=== PATIENT | male | born 1990 | race Caucasian/White ===

== ENCOUNTER 2021-11-27 21:29 | Observation (INO) | payer MEDICAID, OTHER ==
[2021-11-27] MEDS ORDERED: Sodium Chloride 0.9% 1000 ML 1,000 ML IV STA (21:58)
[2021-11-27] MEDS ORDERED: VANCOMYCIN 1 GRAM/200 ML BAG 1 GM/200 ML PIGGYBACK IV ONE ×2 (22:00→22:18)
[2021-11-27] MEDS ORDERED: PIPERACILLIN/TAZOBACTAM 3.375 GM in Sodium Chloride 100ML MINI-BAG PLUS 100 ML IV ONE (22:00)
[2021-11-27] MEDS ORDERED: PIPERACILLIN/TAZOBACTAM IV ONE (22:03)
[2021-11-27] MEDS ORDERED: CLINDAMYCIN-D5W 900 MG/50 ML*** 900 MG/50 ML BAG IV STA (22:03)
[2021-11-27] MEDS ORDERED: Sodium Chloride 0.9% 100 ML ONE (22:05)
[2021-11-27] MEDS ORDERED: Sodium Chloride 100ML MINI-BAG PLUS 100 ML IV ONE (22:05)
[2021-11-27] MEDS ORDERED: Zofran 4 MG/2 ML VIAL IV ONE (22:15)
[2021-11-27] MEDS ORDERED: MORPHINE SULFATE 4 MG INJ IV ONE (22:15)
[2021-11-27] MEDS ORDERED: MORPHINE SULFATE 4 MG INJ ONE (22:17)
[2021-11-27] MEDS ORDERED: Zofran 4 MG/2 ML VIAL ONE (22:17)
--- NOTE | 2021-11-27 22:17 | ERPHSYRPT ---
- History of Present Illness Time Seen by Provider: 11/27/21 21:33 Source: patient Exam Limitations: no limitations Patient Subjective Stated Complaint: foot pain and swelling and redness since saturday night but getting much worse Triage Nursing Assessment: pt noticed a tiny red spot on top of his rt foot Saturday and foot became very tender on Saturday. Today, pt's rt foot is swollen 2+ pitting edema, red, and warm to touch. Pt's leg is tight up to mid calf. Pt worked today. Physician History: Patient is a 31-year-old male presents to emergency department for evaluation of right foot swelling. Swelling started off as a small red spot at the dorsum of his right foot. Over the course of 24 hours the redness spread to encompass most of his foot. The foot and ankle is very swollen. Patient unable to put his regular shoes on. Patien states it is very painful to ambulate. No trauma. Patient is febrile in our ED. Patient took a 400 mg ibuprofen at approximately 7 AM. Timing/Duration: day(s) (2 days ago) Severity: moderate Modifying Factors: Improves With: nothing Associated Symptoms: denies symptoms Allergies/Adverse Reactions: No Known Drug Allergies Allergy (Unverified 11/27/21 21:42) Home Medications: No Reportable Medications [No Reported Medications] 11/27/21 [History] Hx Tetanus, Diphtheria Vaccination/Date Given: Yes Immunizations Up to Date: Yes Travel Risk - International Travel Have you traveled outside of the country in past 3 weeks: No - Coronavirus Screening Are you exhibiting any of the following symptoms?: No - Vaccine Status Have you recieved a Covid-19 vaccination: No - Review of Systems Constitutional: No Symptoms, No Fever, No Chills Eyes: No Symptoms Ears, Nose, & Throat: No Symptoms Respiratory: No Symptoms, No Cough, No Dyspnea Cardiac: No Symptoms, No Chest Pain, No Edema, No Syncope Abdominal/Gastrointestinal: No Symptoms, No Abdominal Pain, No Nausea, No Vomiting, No Diarrhea Genitourinary Symptoms: No Symptoms, No Dysuria Musculoskeletal: No Symptoms, No Back Pain, No Neck Pain Skin: No Symptoms, No Rash Neurological: No Symptoms, No Dizziness, No Focal Weakness, No Sensory Changes Psychological: No Symptoms Endocrine: No Symptoms Hematologic/Lymphatic: No Symptoms Immunological/Allergic: No Symptoms All Other Systems: Reviewed and Negative - Past Medical History Pertinent Past Medical History: Yes Musculoskeletal History: Fractures Psycho-Social History: Attention Deficit Disorder - Past Surgical History Past Surgical History: Yes Musculoskeletal: Orthopedic Surgery - Social History Smoking Status: Current every day smoker How long have you smoked: 14 yrs Exposure to second hand smoke: Yes Drug Use: none Patient Lives Alone: No - Nursing Vital Signs Nursing Vital Signs: Initial Vital Signs Temperature 100.5 F 11/27/21 21:29 Pulse Rate 113 H 11/27/21 21:29 Respiratory Rate 16 11/27/21 21:29 Blood Pressure 153/89 11/27/21 21:29 O2 Sat by Pulse Oximetry 96 11/27/21 21:29 Pain Scale Pain Intensity 8 - Physical Exam General Appearance: no apparent distress, alert Eye Exam: PERRL/EOMI, eyes nml inspection Ears, Nose, Throat Exam: normal ENT inspection, TMs normal, pharynx normal, moist mucous membranes Neck Exam: normal inspection, non-tender, supple, full range of motion Respiratory Exam: normal breath sounds, lungs clear, airway intact, No respiratory distress Cardiovascular Exam: regular rate/rhythm, normal heart sounds, normal peripheral pulses Gastrointestinal/Abdomen Exam: soft, normal bowel sounds, No tenderness, No mass Back Exam: normal inspection, normal range of motion, No CVA tenderness, No vertebral tenderness Extremity Exam: normal inspection, normal range of motion, pelvis stable, pedal edema, swelling (Cellulitis tracking approximately just proximal to the medial and lateral malleolus. No lymphangitis), other (Right foot is swollen. There is cellulitis throughout the right foot mostly on the dorsum lateral and posterior aspects. No involvement of the medial aspect of the right foot. The infection is tracking proximately just proximal to the right ankle. No lymphangitis. There is significant swelling) Neurologic Exam: alert, oriented x 3, cooperative, normal mood/affect, nml cerebellar function, nml station & gait, sensation nml, No motor deficits Skin Exam: normal color, warm, dry, No rash Lymphatic Exam: No adenopathy SpO2 Interpretation: normal SpO2: 97 O2 Delivery: Room Air - Course Nursing assessment & vital signs reviewed: Yes - CT Exams Lower Extremity CT Interpretation: Tele-radiologist Report (No evidence of fracture. Ankle and foot edema.) Ordered Tests: Active Orders 24 hr Category Date Time Status Department [employer] STAT Care 11/27/21 21:59 Active IV Insertion STAT Care 11/27/21 21:58 Active Pulse Oximetry (ED) STAT Care 11/27/21 21:58 Active LOWER EXTREMITY WO CONTRAST [CT] Stat Exams 11/27/21 22:09 Taken BLOOD CULTURE Stat Lab 11/27/21 22:15 Received CBC W DIFF Stat Lab 11/27/21 22:10 Completed CMP Stat Lab 11/27/21 22:00 Completed Lactic Acid Stat Lab 11/27/21 21:58 Completed PROCALCITONIN Stat Lab 11/27/21 22:00 Completed Transfer Order Routine Transfer 11/28/21 Ordered Medication Summary Generic Name Dose Route Start Last Admin Trade Name Freq PRN Reason Stop Dose Admin Potassium Chloride 20 meq in 100 mls @ 50 mls/hr 11/27/21 22:45 11/27/21 23:24 Potassium Chloride 20 Meq In Water 100ml IV 11/28/21 02:44 50 mls/hr Q2H MARCIE Administration Discontinued Medications Generic Name Dose Route Start Last Admin Trade Name Freq PRN Reason Stop Dose Admin Sodium Chloride 1,000 mls @ 999 mls/hr 11/27/21 21:58 11/27/21 22:06 Sodium Chloride 0.9% 1000 Ml IV 11/27/21 22:58 999 mls/hr .Q1H1M STA Administration Piperacillin Sod/Tazobactam 100 mls @ 200 mls/hr 11/27/21 22:00 11/27/21 22:07 Sod 3.375 gm/ Sodium Chloride IV 11/27/21 22:29 200 mls/hr STAT ONE Administration Vancomycin HCl 1 gm in 200 mls @ 125 mls/hr 11/27/21 22:00 11/27/21 22:19 Vancomycin 1 Gram/200 Ml Bag IV 11/27/21 23:35 125 ml/hr STAT ONE 125 mls/hr Administration Clindamycin HCl/Dextrose 900 mg in 50 mls @ 100 mls/hr 11/27/21 22:03 11/17 06/10 22:48 Clindamycin-D5w 900 Mg/50 Ml IV 11/27/21 22:32 100 mls/hr STAT STA 100 mls/hr Administration Sodium Chloride Confirm 11/27/21 22:05 Sodium Chloride 100ml Mini-Bag Plus Administered 11/27/21 22:06 Dose 100 mls @ ud IV .STK-MED ONE Sodium Chloride Confirm 11/27/21 22:05 Sodium Chloride 0.9% Administered 11/27/21 22:06 Dose 100 mls @ ud .ROUTE .STK-MED ONE Vancomycin HCl Confirm 11/27/21 22:18 Vancomycin 1 Gram/200 Ml Bag Administered 11/27/21 22:19 Dose 1 gm in 200 mls @ ud IV .STK-MED ONE Clindamycin HCl/Dextrose Confirm 11/27/21 22:47 Clindamycin-D5w 900 Mg/50 Ml Administered 11/27/21 22:48 Dose 900 mg in 50 mls @ ud IV .STK-MED ONE Morphine Sulfate 4 mg 11/27/21 22:15 11/27/21 22:20 Morphine Sulfate 4 Mg/Ml Injection IV 11/27/21 22:16 4 mg STAT ONE Administration Morphine Sulfate Confirm 11/27/21 22:17 Morphine Sulfate 4 Mg/Ml Injection Administered 11/27/21 22:18 Dose 4 mg .ROUTE .STK-MED ONE Ondansetron HCl 4 mg 11/27/21 22:15 11/27/21 22:20 Ondansetron Hcl 4 Mg/2 Ml Vial IV 11/27/21 22:16 4 mg STAT ONE Administration Ondansetron HCl Confirm 11/27/21 22:17 Ondansetron Hcl 4 Mg/2 Ml Vial Administered 11/27/21 22:18 Dose 4 mg .ROUTE .STK-MED ONE Piperacillin Sod/Tazobactam Sod Confirm 11/27/21 22:03 Piperacillin/Tazobactam Sodium 3.375 Gm Vial Administered 11/27/21 22:04 Dose 3.375 gm IV .STK-MED ONE Lab/Rad Data: Laboratory Result Diagrams 11/27/21 22:10 11/27/21 22:00 Laboratory Results 11/27/21 11/27/21 11/27/21 Range/Units 22:10 22:00 22:00 WBC 12.5 H (4.0-10.5) x10^3/uL RBC 4.31 (4.1-5.6) x10^6/uL Hgb 13.1 (12.5-18.0) g/dL Hct 38.7 L (42-50) % MCV 89.8 (78-100) fL MCH 30.4 (26-32) pg MCHC 33.9 (32-36) g/dL RDW 12.1 (11.5-14.0) % Plt Count 264 (150-450) x10^3/uL MPV 10.6 (7.5-11.0) fL Gran % 62.9 (36.0-66.0) % Immature Gran % (Auto) 0.2 (0.00-0.4) % Nucleat RBC Rel Count 0.0 (0.00-0.1) % Eos # (Auto) 0.22 (0-0.5) x10^3/uL Immature Gran # (Auto) 0.03 (0.00-0.03) x10^3u/L Absolute Lymphs (auto) 2.77 (1.0-4.6) x10^3/uL Absolute Monos (auto) 1.56 H (0.0-1.3) x10^3/uL Absolute Nucleated RBC 0.00 (0.00-0.01) x10^3u/L Lymphocytes % 22.1 L (24.0-44.0) % Monocytes % 12.5 H (0.0-12.0) % Eosinophils % 1.8 (0.00-5.0) % Basophils % 0.5 (0.0-0.4) % Absolute Granulocytes 7.88 H (1.4-6.9) x10^3/uL Basophils # 0.06 (0-0.4) x10^3/uL Sodium 138 (137-145) mmol/L Potassium 3.0 L* (3.5-5.1) mmol/L Chloride 101 (98-107) mmol/L Carbon Dioxide 27 (22-30) mmol/L Anion Gap 13.4 (5-15) MEQ/L BUN 10 (9-20) mg/dL Creatinine 0.75 (0.66-1.25) mg/dL Estimated GFR > 60.0 ML/MIN Glucose 107 H (74-106) mg/dL Lactic Acid (0.4-2.0) Calcium 8.9 (8.4-10.2) mg/dL Total Bilirubin 1.70 H (0.2-1.3) mg/dL AST 29 (17-59) U/L ALT 22 (0-50) U/L Alkaline Phosphatase 96 (38-126) U/L Serum Total Protein 7.6 (6.3-8.2) g/dL Albumin 4.1 (3.5-5.0) g/dL Procalcitonin 0.068 (0.030-0.080) ng/mL Influenza Type A Ag (NEGATIVE) Influenza Type B Ag (NEGATIVE) RSV (PCR) (Negative) SARS-CoV-2 (PCR) (NEGATIVE) Slides for Path Review YES 11/27/21 11/27/21 Range/Units 21:58 00:05 WBC (4.0-10.5) x10^3/uL RBC (4.1-5.6) x10^6/uL Hgb (12.5-18.0) g/dL Hct (42-50) % MCV (78-100) fL MCH (26-32) pg MCHC (32-36) g/dL RDW (11.5-14.0) % Plt Count (150-450) x10^3/uL MPV (7.5-11.0) fL Gran % (36.0-66.0) % Immature Gran % (Auto) (0.00-0.4) % Nucleat RBC Rel Count (0.00-0.1) % Eos # (Auto) (0-0.5) x10^3/uL Immature Gran # (Auto) (0.00-0.03) x10^3u/L Absolute Lymphs (auto) (1.0-4.6) x10^3/uL Absolute Monos (auto) (0.0-1.3) x10^3/uL Absolute Nucleated RBC (0.00-0.01) x10^3u/L Lymphocytes % (24.0-44.0) % Monocytes % (0.0-12.0) % Eosinophils % (0.00-5.0) % Basophils % (0.0-0.4) % Absolute Granulocytes (1.4-6.9) x10^3/uL Basophils # (0-0.4) x10^3/uL Sodium (137-145) mmol/L Potassium (3.5-5.1) mmol/L Chloride (98-107) mmol/L Carbon Dioxide (22-30) mmol/L Anion Gap (5-15) MEQ/L BUN (9-20) mg/dL Creatinine (0.66-1.25) mg/dL Estimated GFR ML/MIN Glucose (74-106) mg/dL Lactic Acid 0.8 (0.4-2.0) Calcium (8.4-10.2) mg/dL Total Bilirubin (0.2-1.3) mg/dL AST (17-59) U/L ALT (0-50) U/L Alkaline Phosphatase (38-126) U/L Serum Total Protein (6.3-8.2) g/dL Albumin (3.5-5.0) g/dL Procalcitonin (0.030-0.080) ng/mL Influenza Type A Ag NEGATIVE (NEGATIVE) Influenza Type B Ag NEGATIVE (NEGATIVE) RSV (PCR) NEGATIVE (Negative) SARS-CoV-2 (PCR) NEGATIVE (NEGATIVE) Slides for Path Review - Progress Progress: improved Progress Note: Case discussed with Dr. Singh who accepts admission to observation. Plan of care discussed with patient. He agrees to admission at [facility] for further evaluation and treatment of his right foot cellulitis. Portions of this note were created with voice recognition technology. There may be grammatical, spelling, punctuation or sound alike errors 11/28/21 01:26 Counseled pt/family regarding: lab results, diagnosis, rad results - Departure Departure Disposition: Observation Clinical Impression: Cellulitis of foot without toes, right, Leukocytosis, Fever, Hypokalemia Condition: Stable Critical Care Time: No
[2021-11-27 22:21] LABS: Absolute Neutrophil Ct (ANC) 7.88 x10^3/uL (1.4-6.9); Basophil (Absolute #) 0.06 x10^3/uL (0-0.4); Eosinophil % 1.8 % (0.00-5.0); Eosinophil (Absolute #) 0.22 x10^3/uL (0-0.5); Hematocrit 38.7 % (42-50); Hemoglobin 13.1 g/dL (12.5-18.0); Lymphocyte (Absolute #) 2.77 x10^3/uL (1.0-4.6); Lymphocytes % 22.1 % (24.0-44.0); Mean Cell Volume 89.8 fL (78-100); Mean Corpuscular Hemoglobin 30.4 pg (26-32); Mean Corpuscular Hgb Concent. 33.9 g/dL (32-36); Mean Platelet Volume 10.6 fL (7.5-11.0); Monocyte (Absolute #) 1.56 x10^3/uL (0.0-1.3); Monocytes % 12.5 % (0.0-12.0); Neutrophil % 62.9 % (36.0-66.0); Platelet Count 264 x10^3/uL (150-450); Red Blood Count 4.31 x10^6/uL (4.1-5.6); Red Cell Distribution Width 12.1 % (11.5-14.0); White Blood Count 12.5 x10^3/uL (4.0-10.5)
[2021-11-27 22:37] LABS: ALBUMIN 4.1 g/dL (3.5-5.0); ALKALINE PHOSPHATASE 96 U/L (38-126); ANION GAP 13.4 MEQ/L (5-15); BLOOD UREA NITROGEN 10 mg/dL (9-20); CHLORIDE 101 mmol/L (98-107); Calcium 8.9 mg/dL (8.4-10.2); Carbon Dioxide 27 mmol/L (22-30); Creatinine 1 0.75 mg/dL (0.66-1.25); EST GLOMERULAR FILTRATION RATE > 60.0 ML/MIN; Glucose 107 mg/dL (74-106); SGOT/AST 29 U/L (17-59); SGPT/ALT 22 U/L (0-50); SODIUM 138 mmol/L (137-145); Total Protein 7.6 g/dL (6.3-8.2)
[2021-11-27] MEDS ORDERED: CLINDAMYCIN-D5W 900 MG/50 ML*** 900 MG/50 ML BAG IV ONE (22:47)
[2021-11-27] MEDS: POTASSIUM CHLORIDE 20 mEq IN WATER 100ML 20 MEQ/100 ML BAG IV SCH (23:24)
[2021-11-28 00:46] LABS: INFLUENZA A NEGATIVE (NEGATIVE); INFLUENZA B NEGATIVE (NEGATIVE); RESPIRATORY SYNCTIAL VIRUS NEGATIVE (Negative); SARS-CoV-2 Xpert Express NEGATIVE (NEGATIVE)
[2021-11-28 01:20] LABS: Slide Review 1 YES
[2021-11-28] MEDS ORDERED: Zofran 4 MG/2 ML VIAL IV PRN (01:28)
[2021-11-28] MEDS ORDERED: TYLENOL 325 MG PO PRN (01:28)
[2021-11-28] MEDS ORDERED: MORPHINE SULFATE 4 MG INJ IV PRN (01:28)
[2021-11-28] MEDS ORDERED: Sodium Chloride 0.9% 1000 ML 0 ML ONE (03:13)
[2021-11-28] MEDS ORDERED: Sodium Chloride 0.9% W/ 20 mEq KCl/LITER 0 ML IV ONE (03:20)
[2021-11-28] MEDS: POTASSIUM CHLORIDE 20 mEq IN WATER 100ML 20 MEQ/100 ML BAG IV SCH (04:57)
[2021-11-28] MEDS ORDERED: PIPERACILLIN/TAZOBACTAM IV ONE (05:06)
[2021-11-28] MEDS ORDERED: Sodium Chloride 100ML MINI-BAG PLUS 100 ML IV ONE (05:08)
[2021-11-28 05:18] LABS: ALBUMIN 3.1 g/dL (3.5-5.0); ALKALINE PHOSPHATASE 72 U/L (38-126); ANION GAP 11.7 MEQ/L (5-15); BLOOD UREA NITROGEN 9 mg/dL (9-20); CHLORIDE 105 mmol/L (98-107); Calcium 8.3 mg/dL (8.4-10.2); Carbon Dioxide 25 mmol/L (22-30); Creatinine 1 0.77 mg/dL (0.66-1.25); EST GLOMERULAR FILTRATION RATE > 60.0 ML/MIN; Glucose 125 mg/dL (74-106); Potassium 3.4 mmol/L (3.5-5.1); SGOT/AST 22 U/L (17-59); SGPT/ALT 18 U/L (0-50); SODIUM 138 mmol/L (137-145)
[2021-11-28 05:29] LABS: Absolute Neutrophil Ct (ANC) 6.53 x10^3/uL (1.4-6.9); Basophil (Absolute #) 0.07 x10^3/uL (0-0.4); Eosinophil % 2.5 % (0.00-5.0); Eosinophil (Absolute #) 0.29 x10^3/uL (0-0.5); Hematocrit 34.3 % (42-50); Hemoglobin 11.4 g/dL (12.5-18.0); Lymphocyte (Absolute #) 2.98 x10^3/uL (1.0-4.6); Lymphocytes % 26.1 % (24.0-44.0); Mean Cell Volume 91.5 fL (78-100); Mean Corpuscular Hemoglobin 30.4 pg (26-32); Mean Corpuscular Hgb Concent. 33.2 g/dL (32-36); Mean Platelet Volume 10.3 fL (7.5-11.0); Monocyte (Absolute #) 1.51 x10^3/uL (0.0-1.3); Monocytes % 13.2 % (0.0-12.0); Neutrophil % 57.3 % (36.0-66.0); Platelet Count 219 x10^3/uL (150-450); Red Blood Count 3.75 x10^6/uL (4.1-5.6); Red Cell Distribution Width 12.5 % (11.5-14.0); White Blood Count 11.4 x10^3/uL (4.0-10.5)
[2021-11-28] MEDS ORDERED: PIPERACILLIN/TAZOBACTAM 3.375 GM in Sodium Chloride 100ML MINI-BAG PLUS 100 ML IV SCH (06:00)
[2021-11-28 06:58] LABS: Slide Review 1 YES
[2021-11-28] MEDS: Sodium Chloride 0.9% 1000 ML 1,000 ML IV SCH (07:49)
--- NOTE | 2021-11-28 08:47 | XRAY ---
Indication: Ankle and foot swelling/erythema. No known injury. Necrotizing soft tissue infection. Multiple contiguous axial images obtained through the right ankle/foot without contrast. Sagittal and coronal reformatted images obtained. Comparison: None Diffuse ankle and anterior lateral foot cutaneous/subcutaneous soft tissue swelling presumed inflammatory/infectious based on clinical history. No walled off fluid collection or subcutaneous emphysema. Ankle and foot articulation appears anatomic. No large ankle effusion. Tiny cuboid accessory ossicles. No acute fracture, suspicious bony lesions, or osseous destructive process. Impression: Ankle and foot soft tissue swelling presumed inflammatory/infectious. Remaining CT right ankle/foot without contrast exam is negative. Comment: Preliminary interpretation made by [facility]. No critical discrepancy.
[2021-11-28] MEDS: VANCOMYCIN 1.5 GRAM/300 ML BAG 1.5 GM/300 ML PIGGYBACK IV SCH ×2 (09:08→22:01)
[2021-11-28] MEDS: PIPERACILLIN/TAZOBACTAM 3.375 GM in Sodium Chloride 100ML MINI-BAG PLUS 100 ML IV SCH ×2 (11:45→17:25)
--- NOTE | 2021-11-28 13:56 | PCM.HP ---
History of Present Illness - Chief Complaint Chief Complaint: foot cellulitis History of Present Illness: is a 31 year old male patient of Dr Fish Maharaj who presented to ER with swollen painful right foot and ankle. NKI. Possible bug bite as it started as a nickel size red tender area on the lateral ankle. He was admitted for IV antibiotic tx cellulitis. PMHx is neg other than Hx healed fracture left arm from falling off of a horse. - Review of Systems Constitutional: No Symptoms Eyes: No Symptoms Ears, Nose, & Throat: No Symptoms Respiratory: No Symptoms Cardiac: No Symptoms Abdominal/Gastrointestinal: No Symptoms Genitourinary Symptoms: No Symptoms Musculoskeletal: Other (see HPI) Skin: Other (see HPI) Neurological: No Symptoms Psychological: No Symptoms Endocrine: No Symptoms Hematologic/Lymphatic: No Symptoms Medications & Allergies Home Medications: Home Medication List No Reportable Medications [No Reported Medications] 11/27/21 [History Confirmed 11/27/21] Allergies/Adverse Reactions: Allergies Allergy/AdvReac Type Severity Reaction Status Date / Time No Known Drug Allergies Allergy Unverified 11/27/21 21:42 - Past Medical History Past Medical History: Yes Neurological History: No Pertinent History ENT History: No Pertinent History Cardiac History: No Pertinent History Respiratory History: No Pertinent History Endocrine Medical History: No Pertinent History Musculoskelatal History: Fractures GI Medical History: No Pertinent History History: No Pertinent History Pyscho-Social History: Attention Deficit Disorder Male Reproductive Disorders: No Pertinent History - Past Surgical History Past Surgical History: Yes Neuro Surgical History: No Pertinent History Cardiac History: No Pertinent History Respiratory Surgery: No Pertinent History GI Surgical History: No Pertinent History Genitourinary Surgical Hx: No Pertinent History Musculskeletal Surgical Hx: Orthopedic Surgery Male Surgical History: No Pertinent History Other Surgical History: right wrist repair from fx. - Social History Smoking Status: Current every day smoker How long have you smoked: 15 Exposure to second hand smoke: Yes Alcohol: None Drug Use: none - Physical Exam Vital Signs: Vital Signs - 24 hr Temp Pulse Resp BP Pulse Ox 11/28/21 12:00 98.3 F 67 17 115/75 97 11/28/21 08:00 98.7 F 80 16 119/66 98 11/28/21 04:00 100.0 F 80 16 127/62 94 L 11/28/21 02:26 100.0 F 80 16 127/62 94 L 11/28/21 01:26 97 11/28/21 01:00 79 18 151/93 98 11/28/21 00:00 102 H 18 157/89 98 11/27/21 23:00 103 H 18 151/93 98 11/27/21 22:29 93 H 18 151/72 98 11/27/21 21:58 97 11/27/21 21:29 100.5 F 113 H 16 153/89 96 General Appearance: mild distress (right ankle pain) Neurologic Exam: alert, oriented x 3, cooperative, normal mood/affect Eye Exam: eyes nml inspection Ears, Nose, Throat Exam: normal ENT inspection Neck Exam: normal inspection Respiratory Exam: normal breath sounds Cardiovascular Exam: regular rate/rhythm Gastrointestinal/Abdomen Exam: soft (nontender) Rectal Exam: not done Back Exam: normal inspection Extremity Exam: inflammation (right laterale ankle and dorsum of right root red,hot,tender,skin intact) Wound Assessment: Skin/Wound Assessment Wound/Incision Assessment Start: 11/28/21 01:00 Text: Status: Active Freq: Q6H Protocol: Document 11/28/21 07:52 SHEYLA (Rec: 11/28/21 07:52 SHEYLA [id number]) Wound/Incision Assessment Right Foot Wound Assessment Shift Assessment Surrounding Tissue [place],Bright Red Results - Labs Lab/Micro Results: Lab Results-Last 24 Hours 11/27/21 11/27/21 11/27/21 Range/Units 00:05 21:58 22:00 WBC (4.0-10.5) x10^3/uL RBC (4.1-5.6) x10^6/uL Hgb (12.5-18.0) g/dL Hct (42-50) % MCV (78-100) fL MCH (26-32) pg MCHC (32-36) g/dL RDW (11.5-14.0) % Plt Count (150-450) x10^3/uL MPV (7.5-11.0) fL Gran % (36.0-66.0) % Immature Gran % (Auto) (0.00-0.4) % Nucleat RBC Rel Count (0.00-0.1) % Eos # (Auto) (0-0.5) x10^3/uL Immature Gran # (Auto) (0.00-0.03) x10^3u/L Absolute Lymphs (auto) (1.0-4.6) x10^3/uL Absolute Monos (auto) (0.0-1.3) x10^3/uL Absolute Nucleated RBC (0.00-0.01) x10^3u/L Lymphocytes % (24.0-44.0) % Monocytes % (0.0-12.0) % Eosinophils % (0.00-5.0) % Basophils % (0.0-0.4) % Absolute Granulocytes (1.4-6.9) x10^3/uL Basophils # (0-0.4) x10^3/uL Sodium 138 (137-145) mmol/L Potassium 3.0 L* (3.5-5.1) mmol/L Chloride 101 (98-107) mmol/L Carbon Dioxide 27 (22-30) mmol/L Anion Gap 13.4 (5-15) MEQ/L BUN 10 (9-20) mg/dL Creatinine 0.75 (0.66-1.25) mg/dL Estimated GFR > 60.0 ML/MIN Glucose 107 H (74-106) mg/dL Lactic Acid 0.8 (0.4-2.0) Calcium 8.9 (8.4-10.2) mg/dL Total Bilirubin 1.70 H (0.2-1.3) mg/dL AST 29 (17-59) U/L ALT 22 (0-50) U/L Alkaline Phosphatase 96 (38-126) U/L Serum Total Protein 7.6 (6.3-8.2) g/dL Albumin 4.1 (3.5-5.0) g/dL Procalcitonin (0.030-0.080) ng/mL Influenza Type A Ag NEGATIVE (NEGATIVE) Influenza Type B Ag NEGATIVE (NEGATIVE) RSV (PCR) NEGATIVE (Negative) SARS-CoV-2 (PCR) NEGATIVE (NEGATIVE) Slides for Path Review 11/27/21 11/27/21 11/28/21 Range/Units 22:00 22:10 04:00 WBC 12.5 H 11.4 H (4.0-10.5) x10^3/uL RBC 4.31 3.75 L (4.1-5.6) x10^6/uL Hgb 13.1 11.4 L (12.5-18.0) g/dL Hct 38.7 L 34.3 L (42-50) % MCV 89.8 91.5 (78-100) fL MCH 30.4 30.4 (26-32) pg MCHC 33.9 33.2 (32-36) g/dL RDW 12.1 12.5 (11.5-14.0) % Plt Count 264 219 (150-450) x10^3/uL MPV 10.6 10.3 (7.5-11.0) fL Gran % 62.9 57.3 (36.0-66.0) % Immature Gran % (Auto) 0.2 0.3 (0.00-0.4) % Nucleat RBC Rel Count 0.0 0.0 (0.00-0.1) % Eos # (Auto) 0.22 0.29 (0-0.5) x10^3/uL Immature Gran # (Auto) 0.03 0.03 (0.00-0.03) x10^3u/L Absolute Lymphs (auto) 2.77 2.98 (1.0-4.6) x10^3/uL Absolute Monos (auto) 1.56 H 1.51 H (0.0-1.3) x10^3/uL Absolute Nucleated RBC 0.00 0.00 (0.00-0.01) x10^3u/L Lymphocytes % 22.1 L 26.1 (24.0-44.0) % Monocytes % 12.5 H 13.2 H (0.0-12.0) % Eosinophils % 1.8 2.5 (0.00-5.0) % Basophils % 0.5 0.6 (0.0-0.4) % Absolute Granulocytes 7.88 H 6.53 (1.4-6.9) x10^3/uL Basophils # 0.06 0.07 (0-0.4) x10^3/uL Sodium (137-145) mmol/L Potassium (3.5-5.1) mmol/L Chloride (98-107) mmol/L Carbon Dioxide (22-30) mmol/L Anion Gap (5-15) MEQ/L BUN (9-20) mg/dL Creatinine (0.66-1.25) mg/dL Estimated GFR ML/MIN Glucose (74-106) mg/dL Lactic Acid (0.4-2.0) Calcium (8.4-10.2) mg/dL Total Bilirubin (0.2-1.3) mg/dL AST (17-59) U/L ALT (0-50) U/L Alkaline Phosphatase (38-126) U/L Serum Total Protein (6.3-8.2) g/dL Albumin (3.5-5.0) g/dL Procalcitonin 0.068 (0.030-0.080) ng/mL Influenza Type A Ag (NEGATIVE) Influenza Type B Ag (NEGATIVE) RSV (PCR) (Negative) SARS-CoV-2 (PCR) (NEGATIVE) Slides for Path Review YES YES 11/28/21 11/28/21 Range/Units 04:00 10:55 WBC (4.0-10.5) x10^3/uL RBC (4.1-5.6) x10^6/uL Hgb (12.5-18.0) g/dL Hct (42-50) % MCV (78-100) fL MCH (26-32) pg MCHC (32-36) g/dL RDW (11.5-14.0) % Plt Count (150-450) x10^3/uL MPV (7.5-11.0) fL Gran % (36.0-66.0) % Immature Gran % (Auto) (0.00-0.4) % Nucleat RBC Rel Count (0.00-0.1) % Eos # (Auto) (0-0.5) x10^3/uL Immature Gran # (Auto) (0.00-0.03) x10^3u/L Absolute Lymphs (auto) (1.0-4.6) x10^3/uL Absolute Monos (auto) (0.0-1.3) x10^3/uL Absolute Nucleated RBC (0.00-0.01) x10^3u/L Lymphocytes % (24.0-44.0) % Monocytes % (0.0-12.0) % Eosinophils % (0.00-5.0) % Basophils % (0.0-0.4) % Absolute Granulocytes (1.4-6.9) x10^3/uL Basophils # (0-0.4) x10^3/uL Sodium 138 (137-145) mmol/L Potassium 3.4 L 3.6 (3.5-5.1) mmol/L Chloride 105 (98-107) mmol/L Carbon Dioxide 25 (22-30) mmol/L Anion Gap 11.7 (5-15) MEQ/L BUN 9 (9-20) mg/dL Creatinine 0.77 (0.66-1.25) mg/dL Estimated GFR > 60.0 ML/MIN Glucose 125 H (74-106) mg/dL Lactic Acid (0.4-2.0) Calcium 8.3 L (8.4-10.2) mg/dL Total Bilirubin 2.00 H (0.2-1.3) mg/dL AST 22 (17-59) U/L ALT 18 (0-50) U/L Alkaline Phosphatase 72 (38-126) U/L Serum Total Protein 6.0 L (6.3-8.2) g/dL Albumin 3.1 L (3.5-5.0) g/dL Procalcitonin (0.030-0.080) ng/mL Influenza Type A Ag (NEGATIVE) Influenza Type B Ag (NEGATIVE) RSV (PCR) (Negative) SARS-CoV-2 (PCR) (NEGATIVE) Slides for Path Review - Radiology Impressions Radiology Exams & Impressions: Radiology Procedures Category Date Time Status LOWER EXTREMITY WO CONTRAST [CT] Stat Exams 11/27/21 22:09 Completed Assessment/Plan (1) Cellulitis of foot without toes, right Current Visit: Yes Status: Acute Assessment & Plan: antibiotics started in ER, Added Solumedrol. tested uric acid was wnl Code(s): L03.115 - CELLULITIS OF RIGHT LOWER LIMB
[2021-11-28] MEDS: solu-MEDROL 80 MG, Sterile H2O 10 ml 2 ML IV SCH ×4 (17:14→22:01)
[2021-11-28] MEDS: PERCOCET TABLET 5/325MG PO PRN (17:19)
[2021-11-28] MEDS ORDERED: VANCOMYCIN 1 GRAM/200 ML BAG 1 GM/200 ML PIGGYBACK IV SCH (22:00)
[2021-11-29] MEDS: PIPERACILLIN/TAZOBACTAM 3.375 GM in Sodium Chloride 100ML MINI-BAG PLUS 100 ML IV SCH ×4 (00:11→18:03)
[2021-11-29] MEDS ORDERED: solu-MEDROL ONE (05:12)
[2021-11-29] MEDS: solu-MEDROL 80 MG, Sterile H2O 10 ml 2 ML IV SCH ×6 (06:00→21:08)
[2021-11-29] MEDS: VANCOMYCIN 1.5 GRAM/300 ML BAG 1.5 GM/300 ML PIGGYBACK IV SCH ×2 (09:22→21:08)
[2021-11-29] MEDS: Sodium Chloride 0.9% 1000 ML 1,000 ML IV SCH (09:22)
[2021-11-29] MEDS: PERCOCET TABLET 5/325MG PO PRN ×2 (12:01→21:08)
[2021-11-30] MEDS: PIPERACILLIN/TAZOBACTAM 3.375 GM in Sodium Chloride 100ML MINI-BAG PLUS 100 ML IV SCH ×4 (00:33→16:59)
[2021-11-30] MEDS: PERCOCET TABLET 5/325MG PO PRN ×4 (01:19→16:41)
[2021-11-30 05:05] LABS: Hematocrit 35.1 % (42-50); Hemoglobin 11.4 g/dL (12.5-18.0); Mean Cell Volume 93.6 fL (78-100); Mean Corpuscular Hemoglobin 30.4 pg (26-32); Mean Corpuscular Hgb Concent. 32.5 g/dL (32-36); Mean Platelet Volume 11.5 fL (7.5-11.0); Platelet Count 291 x10^3/uL (150-450); Red Blood Count 3.75 x10^6/uL (4.1-5.6); Red Cell Distribution Width 12.6 % (11.5-14.0); White Blood Count 15.6 x10^3/uL (4.0-10.5)
[2021-11-30 05:27] LABS: ANION GAP 8.4 MEQ/L (5-15); BLOOD UREA NITROGEN 6 mg/dL (9-20); CHLORIDE 108 mmol/L (98-107); Calcium 8.7 mg/dL (8.4-10.2); Carbon Dioxide 29 mmol/L (22-30); Creatinine 1 0.61 mg/dL (0.66-1.25); EST GLOMERULAR FILTRATION RATE > 60.0 ML/MIN; Glucose 152 mg/dL (74-106); Potassium 3.7 mmol/L (3.5-5.1); SODIUM 141 mmol/L (137-145)
[2021-11-30] MEDS: solu-MEDROL 80 MG, Sterile H2O 10 ml 2 ML IV SCH ×4 (06:06→14:18)
[2021-11-30] MEDS: VANCOMYCIN 1.5 GRAM/300 ML BAG 1.5 GM/300 ML PIGGYBACK IV SCH (10:03)
[2021-11-30] MEDS: Sodium Chloride 0.9% 1000 ML 1,000 ML IV SCH (10:07)
[2021-11-30] MEDS ORDERED: solu-MEDROL ONE (14:15)
[2021-11-30 16:12] VITALS: BP 129/73; PULSE 87; O2SAT 98
--- NOTE | 2021-11-30 16:36 | XRAY ---
Indication: Lateral foot erythema and swelling. No known injury. Sagittal, coronal, and axial MRI right mid to forefoot performed using pre-and post T1, T2, and STIR sequences. 15 cc Dotarem contrast used. Comparison: None Visualized right foot articulation appears anatomic. Anterior lateral foot demonstrates mild subcutaneous soft tissue swelling/edema with minimal enhancement favoring cellulitis. No focal solid/cystic soft tissue mass or abnormal fluid collection. No acute fracture, suspicious bony lesions, or abnormal bone marrow signal. Following gadolinium, there is no abnormal bony enhancement. Impression: Mild anterior lateral foot cellulitis. No underlying abscess or osteomyelitis.
--- NOTE | 2021-11-30 16:58 | PCM.CONS ---
Podiatry HPI - Consult Date of Consultation Date: 11/30/21 Reason for Consult: Cellulitis right lower extremity Consulting Provider: MERI DAS DPM - [facility] History of Present Illness: Kendall is a very pleasant 31-year-old male who presents on November 27 for swelling and pain to the right lower extremity that started November 25. Patient indicates that there was worsening of his symptomatology on Saturday and his foot became red hot swollen warm and exquisitely painful to the touch. Patient indicates that he has been able to bear weight. He presented to the emergency room at that time and was provided with IV antibiotics. Patient did meet SIRS criteria on presentation with elevated pulse and temperature with a pain rating at 8. Since his admission patient has received vancomycin and Zosyn. On presentation his white blood cell count was 12.5. Since admission his vitals have normalized significantly however with the starting of Solu-Medrol there has been a recent increase in his white blood cell count. Medications & Allergies Home Medications: Home Medication List No Reportable Medications [No Reported Medications] 11/27/21 [History Confirmed 11/27/21] Allergies/Adverse Reactions: Allergies Allergy/AdvReac Type Severity Reaction Status Date / Time No Known Drug Allergies Allergy Unverified 11/27/21 21:42 - Past Medical History Past Medical History: Yes Neurological History: No Pertinent History ENT History: No Pertinent History Cardiac History: No Pertinent History Respiratory History: No Pertinent History Endocrine Medical History: No Pertinent History Musculoskelatal History: Fractures GI Medical History: No Pertinent History History: No Pertinent History Pyscho-Social History: Attention Deficit Disorder Male Reproductive Disorders: No Pertinent History - Past Surgical History Past Surgical History: Yes Neuro Surgical History: No Pertinent History Cardiac History: No Pertinent History Respiratory Surgery: No Pertinent History GI Surgical History: No Pertinent History Genitourinary Surgical Hx: No Pertinent History Musculskeletal Surgical Hx: Orthopedic Surgery Male Surgical History: No Pertinent History Other Surgical History: right wrist repair from fx. - Social History Smoking Status: Current every day smoker How long have you smoked: 15 Exposure to second hand smoke: Yes Alcohol: None Drug Use: none Physical Exam - General General Appearance: no apparent distress - Neuro Neurologic: Epicritic and protopathic - Vascular Peripheral Pulses: Posterior tibialis: 2+, Dorsalis-Pedis: 2+ Capillary Refill Time: < 3 seconds Hair Growth: Symmetrical and Bilateral Varicosities: Negtive Edema: Pitting Edema Degree: 3+ Skin: Supple, not atrophic Skin Temperature: Warm to touch - Muscular Muscle Strength: 5/5 on all 4 quadrants - Narrative Narrative Physical Exam: Podiatry Physical Exam Dermatological exam: 3+ pitting edema to the right lower extremity with exquisite pain with palpation to the subtalar joint and Jeff lateral malleoli are area. No pain with palpation to the dorsal midfoot. Appearance is largely cellulitic. No proximal streaking. No lymphangitis no lymphadenopathy on palpation of the inguinal or popliteal lymph nodes. Results - Labs Lab/Micro Results: Lab Results-Last 24 Hours 11/30/21 11/30/21 Range/Units 04:30 04:30 WBC 15.6 H (4.0-10.5) x10^3/uL RBC 3.75 L (4.1-5.6) x10^6/uL Hgb 11.4 L (12.5-18.0) g/dL Hct 35.1 L (42-50) % MCV 93.6 (78-100) fL MCH 30.4 (26-32) pg MCHC 32.5 (32-36) g/dL RDW 12.6 (11.5-14.0) % Plt Count 291 (150-450) x10^3/uL MPV 11.5 H (7.5-11.0) fL Sodium 141 (137-145) mmol/L Potassium 3.7 (3.5-5.1) mmol/L Chloride 108 H (98-107) mmol/L Carbon Dioxide 29 (22-30) mmol/L Anion Gap 8.4 (5-15) MEQ/L BUN 6 L (9-20) mg/dL Creatinine 0.61 L (0.66-1.25) mg/dL Estimated GFR > 60.0 ML/MIN Glucose 152 H (74-106) mg/dL Calcium 8.7 (8.4-10.2) mg/dL Microbiology 11/27/21 22:15 Blood Culture - Preliminary Blood NO GROWTH TO DATE 11/27/21 22:00 Blood Culture - Preliminary Blood NO GROWTH TO DATE - Radiology Impressions Radiology Exams & Impressions: Radiology Procedures Category Date Time Status MRI LOWER EXT W & W/O [MRI] Routine Exams 11/30/21 13:50 Completed MRI LOWER EXT WITH CONTRAST [MRI] Routine Exams 11/30/21 13:00 Taken Assessment/Plan (1) Cellulitis of foot without toes, right Current Visit: Yes Status: Acute Assessment & Plan: Initial patient examination evaluation. Radiographs reviewed demonstrating normal soft tissue and osseous pathology. MRI demonstrating cellulitis to the anterior lateral aspect of the right ankle with no suspicion for septic arthritis based on MRI appearance. At this time patient would benefit with compression therapy to the right lower extremity in order to eliminate the edema. This should help to mobilize the inflammation and the pain. Unna boot was applied to the right lower extremity. Patient's leukocytosis is elevated and continues to climb at this time however exacerbation could be due to the start of Solu-Medrol. Patient has been on IV antibiotics since Saturday. All other sources of infection have been ruled out. Pain controlled. Medicine for pain control on DC Okay for discharge from my standpoint with return for blood work and potential change of Unna boot outpatient if medicine agrees with course. Patient understands if worsening of symptomatology increase in pain or any constitutional symptoms he is to return to the emergency department immediately. Recommendations for levofloxacin 500 mg p.o. daily 10 days as cellulitis more commonly is due to staph infection. No culture verbal wound seen on initial presentation. Appreciate medicine recommendations Return for reassessment outpatient on Saturday to my clinic on discharge If not discharged will follow closely Code(s): L03.115 - CELLULITIS OF RIGHT LOWER LIMB (2) Fever Current Visit: Yes Status: Acute Code(s): R50.9 - FEVER, UNSPECIFIED (3) Hypokalemia Current Visit: Yes Status: Acute Code(s): E87.6 - HYPOKALEMIA (4) Leukocytosis Current Visit: Yes Status: Acute Code(s): D72.829 - ELEVATED WHITE BLOOD CELL COUNT, UNSPECIFIED (5) Venous insufficiency of right leg Current Visit: Yes Status: Acute Code(s): I87.2 - VENOUS INSUFFICIENCY (CHRONIC) (PERIPHERAL) (6) Localized edema Current Visit: Yes Status: Acute Code(s): R60.0 - LOCALIZED EDEMA
[2021-12-01] MEDS ORDERED: TROUGH DRUG LEVELS IJ ONE (09:30)
== END 2021-11-30 17:37 | disposition home or self-care (01) ==
LOC: ED 21:29 → MED SURG 11-28 01:25
PROVIDERS: ADMIT Family Medicine; ATTEND Family Medicine
DX: L03.115 Cellulitis of right lower limb (principal); R50.9 Fever, unspecified; E87.6 Hypokalemia; D72.829 Elevated white blood cell count, unspecified; I87.2 Venous insufficiency (chronic) (peripheral); R60.0 Localized edema; Z72.0 Tobacco use; Z20.828 Contact with and (suspected) exposure to other viral communicable diseases
CPT/HCPCS: 0241U; 29580; 36000; 36415; 73700; 73719; 73720; 80048; 80053; 83605; 84132; 84145; 84550; 85025; 85027; 87040; 93041; 93268; 94760; 96374; 96375; 99223; 99285; G0378; J2270; J2405; J2930; J3480; A9270-GY; J3370

== ENCOUNTER 2024-03-28 04:43 | Emergency (ER) | payer MEDICAID, OTHER ==
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
[2024-03-28 05:00] VITALS: BP 149/81; PULSE 94; RESP 18; TEMP 98.1; O2SAT 98
[2024-03-28] MEDS ORDERED: Sterile H2O 10 ml IJ ONE (05:38)
[2024-03-28] MEDS ORDERED: PERCOCET TABLET 5/325MG ONE (05:38)
[2024-03-28] MEDS ORDERED: Norflex 60 MG/2 ML ONE (05:38)
[2024-03-28] MEDS ORDERED: solu-MEDROL ONE (05:38)
[2024-03-28] MEDS: PERCOCET TABLET 5/325MG PO STA ×2 (05:42)
[2024-03-28] MEDS: Norflex 60 MG/2 ML IM ONE (05:43)
[2024-03-28] MEDS: solu-MEDROL 125 MG, Sterile H2O 10 ml 2 ML IM ONE (05:50)
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
== END 2024-03-28 06:02 | disposition home or self-care (01) ==
LOC: ED 04:43
DX: Z79.52 Long term (current) use of systemic steroids (principal); Z79.899 Other long term (current) drug therapy; Z72.0 Tobacco use
CPT/HCPCS: 72100; 96372; 99283; 99284; J2360; J2919; A9270-GY